=== PATIENT | female | born 1995 | race Caucasian/White ===

== ENCOUNTER 2016-09-07 02:33 | Emergency (ER) | payer BC, OTHER ==
[~2016-09-07] VITALS: Ht 165.1 cm; Wt 85.0 kg
[2016-09-07 02:46] VITALS: Ht 165.1 cm; Wt 85.0 kg
[2016-09-07] MEDS ORDERED: FAMOTIDINE 20 MG INJ IV STA (03:00)
[2016-09-07] MEDS ORDERED: ONDANSETRON 4 MG INJ IV STA (03:00)
[2016-09-07] MEDS ORDERED: SOD CHLORIDE 0.9% 1,000 ML IV STA ×2 (03:00→03:54)
[2016-09-07] MEDS ORDERED: morphine 2 MG INJ IV STA (03:00)
[2016-09-07 03:49] LABS: EOSINOPHILS % 0.2 % (0.0-7.0); HEMATOCRIT 36.9 % (37.0-47.0); HEMOGLOBIN 12.5 g/dl (12.0-16.0); LYMPHOCYTES # 1.4 10^3/ul (0.8-2.9); LYMPHOCYTES % 8.4 % (15.0-51.0); MEAN CORPUSCULAR HGB CONC 33.9 g/dl (32.0-37.0); MEAN CORPUSCULAR VOLUME 79.8 fl (82.0-101.0); MEAN PLATELET VOLUME 9.6 fl (7.4-10.4); MONOCYTE # 0.6 10^3/ul (0.3-0.9); MONOCYTES % 3.7 % (0.0-11.0); NEUTROPHIL # 14.5 10^3/ul (1.6-7.5); NEUTROPHILS % 87.7 % (39.0-77.0); PLATELET COUNT 272 10^3/UL (140-440); RED BLOOD COUNT 4.63 10^6/ul (4.20-5.40); RED CELL DISTRIBUTION WIDTH 14.4 % (11.5-14.5); UNCORRECTED WBC 16.5 10^3/ul (4.8-10.8); URINE BILIRUBIN (Dip) NEGATIVE (NEGATIVE); URINE BLOOD (Dip) NEGATIVE (NEGATIVE); URINE COLOR LT. YELLOW (YELLOW); URINE GLUCOSE (Dip) NEGATIVE (NEGATIVE); URINE KETONES (Dip) 15 (NEGATIVE); URINE LEUKOCYTE ESTERASE (Dip) NEGATIVE (NEGATIVE); URINE NITRITE (Dip) NEGATIVE (NEGATIVE); URINE UROBILINOGEN (Dip) 0.2 E.U./dL (0.1-1.0); WHITE BLOOD COUNT 16.5 10^3/ul (4.8-10.8)
[2016-09-07 03:50] LABS: ADD UMIC NO; URINE TOTAL PROTEIN (Dip) NEGATIVE (NEGATIVE)
[2016-09-07 03:51] LABS: CONDITION 1; LH ANALYZER COMMENTS 1
--- NOTE | 2016-09-07 04:04 | RADRPT ---
PROCEDURE: ULTRASOUND LIMITED ABDOMEN CLINICAL INDICATION: 21-year-old female with abdominal pain. TECHNIQUE: Multiple sonographic of the right upper quadrant of the abdomen were obtained. The imag es were reviewed on a PACS workstation. COMPARISON: None. FINDINGS: The pancreas is not well visualized secondary to overlying bowel gas. The liver displays normal echogenicity. The liver measures 15.2 cm in length. No evidence of intrah epatic biliary ductal dilatation is seen. The portal and hepatic veins are unremarkable. The gallbladder contains multiple shadowing stones with the largest measuring 2.3 cm and extending i nto the neck region. The gallbladder wall thickness is within normal limits measuring 1.5 mm. No p ericholecystic fluid is seen. The common bile duct measures 6.4 mm and is dilated. The right kidney displays normal echogenicity. The right kidney measures 9.2 cm in maximal length. N o caliectasis or hydronephrosis is seen. No free fluid is seen. IMPRESSION: Cholelithiasis with dilated common bile duct. .Guanakito Camp MD, Date Time Electronically viewed and signed by .Guanakito Camp MD, on 09/07/2016 04:04 .M/
[2016-09-07 04:10] LABS: ALBUMIN 4.5 g/dl (3.3-4.9)
[2016-09-07 04:11] LABS: POTASSIUM 3.6 mmol/L (3.5-5.1)
[2016-09-07 04:13] LABS: ALBUMIN/GLOBULIN RATIO 1.09; BILIRUBIN,INDIRECT 0.2 mg/dl (0-1.1); BILIRUBIN,TOTAL 0.2 mg/dl (0.2-1.3); CREATININE 0.73 mg/dl (0.44-1.00); TOTAL PROTEIN 8.6 g/dl (6.1-8.1)
[2016-09-07 04:14] LABS: CALCIUM 9.8 mg/dl (8.4-10.2)
--- NOTE | 2016-09-07 04:19 | ERD ---
ER Documentation Chief Complaint Date/Time DATE: 09/07/16 TIME: 04:16 Chief Complaint epigastric burning pain HPI This is a 21-year-old female presents to the emergency room for evaluation of abdominal pain. The patient states she has had abdominal pain for approximately 4 hours and localizes it to the midportion of her abdomen. She does state that started after she ate spicy food. She denies any radiation of the pain. She does say she is nausea and has vomited once. The patient does state she also has a history of gallstones and came to the ER today for evaluation. She denies any relieving factors for her pain ROS All systems reviewed and are negative except as per history of present illness. Allergies Allergies: Coded Allergies: No Known Allergy (Unverified , 09/07/16) PMhx/Soc History of Surgery: Yes (eye surgery) Anesthesia Reaction: No Hx Neurological Disorder: No Hx Respiratory Disorders: No Hx Cardiac Disorders: No Hx Psychiatric Problems: No Hx Miscellaneous Medical Probl: Yes (gallstones) Hx Alcohol Use: Yes (rarely) Hx Substance Use: No Hx Tobacco Use: No Smoking Status: Never smoker Physical Exam Vitals Vital Signs Date Time Temp Pulse Resp B/P Pulse Ox O2 Delivery O2 Flow Rate FiO2 09/07/16 02:46 98.0 79 18 128/82 100 Physical Exam INITIAL VITAL SIGNS: Reviewed by me GENERAL: The patient is well developed and appropriate for usual state of health in no apparent distress HEENT: Pupils equal, round, and reactive to light. EOMI. There is no scleral icterus. NECK: C-spine is soft and supple, there is no meningismus. There is no cervical lymphadenopathy. LUNGS: Clear to auscultation bilaterally. There are no rales, wheezes or rhonchi. HEART: Regular rate and rhythm, no murmurs, clicks, rubs or gallops. ABDOMEN: Epigastric tenderness to palpation, negative Fang sign, soft, non- tender, non-distended. There are bowel sounds in all four quadrants. No rebound or guarding. EXTREMITIES: There is no peripheral cyanosis or edema. No focal swelling or erythema. NEUROLOGICAL: The patient moves all four extremities with 5/5 strength. Cranial nerves II - XII are intact. Normal gait. Alert and oriented SKIN: There is no apparent rash or petechiae. HEME/LYMPHATIC: There is no evidence of excessive bruising or lymphedema. PSYCHIATRIC: The patient does not appear anxious or depressed. Result Diagram: 09/07/1631109/07/16311 Results 24 hrs Laboratory Tests Test 09/07/16 03:12 Alanine Aminotransferase (ALT/SGPT) 35IU/L Albumin 4.5g/dl Albumin/Globulin Ratio 1.09 Alkaline Phosphatase 113IU/L Anion Gap 21 Aspartate Amino Transf (AST/SGOT) 24IU/L Basophils # 0.010^3/ul Basophils % 0.0% Blood Morphology Comment Blood Urea Nitrogen 13mg/dl Calcium Level 9.8mg/dl Carbon Dioxide Level 25mmol/L Chloride Level 102mmol/L Creatinine 0.73mg/dl Direct Bilirubin 0.00mg/dl Eosinophils # 0.010^3/ul Eosinophils % 0.2% Globulin 4.10g/dl Glucose Level 105mg/dl Hematocrit 36.9% Hemoglobin 12.5g/dl Indirect Bilirubin 0.2mg/dl Lipase 161U/L Lymphocytes # 1.410^3/ul Lymphocytes % 8.4% Mean Corpuscular Hemoglobin 27.0pg Mean Corpuscular Hemoglobin Concent 33.9g/dl Mean Corpuscular Volume 79.8fl Mean Platelet Volume 9.6fl Monocytes # 0.610^3/ul Monocytes % 3.7% Neutrophils # 14.510^3/ul Neutrophils % 87.7% Nucleated Red Blood Cells # 0.010^3/ul Nucleated Red Blood Cells % 0.0/100WBC Platelet Count 20021^3/UL Potassium Level 3.6mmol/L Red Blood Count 4.6310^6/ul Red Cell Distribution Width 14.4% Sodium Level 144mmol/L Total Bilirubin 0.2mg/dl Total Protein 8.6g/dl Urine Bilirubin NEGATIVE Urine Clarity CLEAR Urine Color LT. YELLOW Urine Glucose NEGATIVE% Urine Hemoglobin NEGATIVE Urine Ketones 15 Urine Leukocyte Esterase NEGATIVE Urine Nitrite NEGATIVE Urine Test NEGATIVE Urine Specific Waves >=1.030 Urine Total Protein NEGATIVE Urine Urobilinogen 0.2 E.U./dL Urine pH 6.0 White Blood Count 16.510^3/ul Current Medications Medications (Trade) Dose Ordered Sig/Christiano Route PRN Reason Start Time Stop Time Status Last Admin Dose Admin Sodium Chloride (NS) 1,000 ml @ 1,000 mls/hr Q1H STAT IV 09/07/16 03:00 09/07/16 03:59 DC 09/07/16 03:29 Morphine Sulfate (morphine) 2 mg ONCE STAT IV 09/07/16 03:00 09/07/16 03:02 DC 09/07/16 03:26 Ondansetron HCl (Zofran Inj) 4 mg ONCE STAT IV 09/07/16 03:00 09/07/16 03:02 DC 09/07/16 03:25 Famotidine 20 mg 20 mg ONCE STAT IV 09/07/16 03:00 09/07/16 03:02 DC 09/07/16 03:25 Sodium Chloride (NS) 1,000 ml @ 1,000 mls/hr Q1H STAT IV 09/07/16 03:54 09/07/16 04:53 09/07/16 04:05 Procedures/MDM Ultrasound gallbladder: Cholelithiasis with dilated common bile duct. This 21-year-old female presents to the ER for evaluation of abdominal pain. This patient was found to have epigastric tenderness on my examination. Lab work was obtained including an ultrasound. Ultrasound does show gallstones with common bile duct dilation however common bile duct is a 6.4 mm. This patient has no elevations in her bilirubin or transaminases. The patient's pain is controlled with morphine and Zofran. This patient will need an elective cholecystectomy however feel that there is no need for an emergent cholecystectomy at this time. This patient will be discharged home with a prescription for Zofran, Zantac, Rex for breakthrough pain and referral for outpatient general surgery for elective cholecystectomy. I do feel her leukocytosis is reactive to her vomiting. Pulmonary evaluation she is sitting in bed comfortably in no acute distress. She did receive 2 L of IV fluids as well Departure Diagnosis: Primary Impression: Biliary colic Additional Impressions: Epigastric pain Cholelithiasis Condition: Stable BRENDAABDIAMARILIS MCKINNON Sep 07, 2016 04:19
[2016-09-07] MEDS ORDERED: ONDA4TAB8 PO (04:21)
[2016-09-07] MEDS ORDERED: RANI150T9 PO (04:21)
[2016-09-07] MEDS ORDERED: HYDR-906 PO (04:21)
[2016-09-07 04:27] VITALS: BP 117/65; PULSE 81; RESP 19
== END 2016-09-07 04:49 | disposition home or self-care (01) ==
LOC: E/R 02:33
DX: K80.70 Calculus of gallbladder and bile duct without cholecystitis without obstruction (principal); R11.2 Nausea with vomiting, unspecified
CPT/HCPCS: 36415; 76705; 80053; 81003; 83690; 84703; 85025; 96374; 96375; J2270; J2405; J7030; Z7502; Z7610

== ENCOUNTER 2017-02-12 04:33 | Emergency (ER) | payer OTHER ==
[~2017-02-12] VITALS: Ht 167.6 cm; Wt 80.5 kg
[~2017-02-12 04:33] MED LIST: HYDR-906 PO; ONDA4TAB8 PO; RANI150T9 PO
[2017-02-12 04:48] VITALS: Ht 167.6 cm; Wt 80.5 kg
[2017-02-12] MEDS ORDERED: morphine 4 MG/ML VIAL IV STA ×2 (05:05→05:59)
[2017-02-12] MEDS ORDERED: ONDANSETRON 4 MG INJ IV STA (05:05)
[2017-02-12] MEDS ORDERED: SOD CHLORIDE 0.9% 1,000 ML IV STA (05:05)
[2017-02-12 05:36] LABS: ADD SCAN DIFF NO
[2017-02-12 05:42] LABS: BASOPHILS % 0.2 % (0.0-2.0); EOSINOPHILS # 0.1 10^3/ul (0.0-0.5); EOSINOPHILS % 1.1 % (0.0-7.0); LYMPHOCYTES # 2.1 10^3/ul (0.8-2.9); LYMPHOCYTES % 19.9 % (15.0-51.0); MEAN CORPUSCULAR HEMOGLOBIN 24.2 pg (29.0-33.0); MEAN CORPUSCULAR HGB CONC 30.8 g/dl (32.0-37.0); MEAN CORPUSCULAR VOLUME 78.8 fl (82.0-101.0); MEAN PLATELET VOLUME 11.6 fl (7.4-10.4); MONOCYTE # 0.6 10^3/ul (0.3-0.9); MONOCYTES % 6.1 % (0.0-11.0); NEUTROPHIL # 7.6 10^3/ul (1.6-7.5); NEUTROPHILS % 72.4 % (39.0-77.0); PLATELET COUNT 276 10^3/UL (140-415); RED BLOOD COUNT 4.95 10^6/ul (4.20-5.40); RED CELL DISTRIBUTION WIDTH 14.4 % (11.5-14.5); WHITE BLOOD COUNT 10.5 10^3/ul (4.8-10.8)
[2017-02-12 05:52] LABS: ADD UMIC NO; UR ASCORBIC ACID NEGATIVE (NEGATIVE); UR BILIRUBIN (Dip) NEGATIVE (NEGATIVE); UR BLOOD (Dip) NEGATIVE (NEGATIVE); UR CLARITY SLIGHTLY CLOUDY (CLEAR); UR COLOR YELLOW (YELLOW); UR GLUCOSE (Dip) NEGATIVE (NEGATIVE); UR KETONES (Dip) NEGATIVE (NEGATIVE); UR LEUKOCYTE ESTERASE (Dip) NEGATIVE Leu/ul (NEGATIVE); UR NITRITE (Dip) NEGATIVE (NEGATIVE); UR RBC 1 /HPF (0-5); UR SPECIFIC GRAVITY (Dip) 1.012 (1.003-1.030); UR SQUAMOUS EPITHELIAL CELL FEW /HPF (FEW); UR TOTAL PROTEIN (Dip) NEGATIVE (NEGATIVE); UR UROBILINOGEN (Dip) NEGATIVE (NEGATIVE)
[2017-02-12 06:00] LABS: ALBUMIN 5.1 g/dl (3.3-4.9); ALBUMIN/GLOBULIN RATIO 1.45; BILIRUBIN,INDIRECT 0.2 mg/dl (0-1.1); BILIRUBIN,TOTAL 0.2 mg/dl (0.2-1.3); CALCIUM 9.9 mg/dl (8.4-10.2); CREATININE 0.74 mg/dl (0.44-1.00); POTASSIUM 3.8 mmol/L (3.5-5.1); TOTAL PROTEIN 8.6 g/dl (6.1-8.1)
--- NOTE | 2017-02-12 06:02 | RADRPT ---
PROCEDURE: Abdominal ultrasound, limited. CLINICAL INDICATION: Abdominal pain. TECHNIQUE: Multiple real-time images were acquired of the patient's right upper abdomen utilizing a high resolution transducer. COMPARISON: 09/07/2016. FINDINGS: The liver demonstrates normal echogenicity and size measuring 16.4 cm. There is no focal mass or in trahepatic biliary ductal dilatation. The portal vein is patent. The gallbladder is not distended. Multiple echogenic gallstones are identified. There is no pericholecystic fluid or gallbladder wa ll thickening. The common bile duct measures 6.5 mm in maximal dimension. The visualized portions of the pancreas are unremarkable. No free fluid is identified. The right kidney is normal size and echogenicity measuring 10.8 cm. There is no focal renal mass or echogenic calculus identified. There is no obstructive uropathy. IMPRESSION: Cholelithiasis without ultrasound evidence of cholecystitis. Mildly dilated common bile duct measuring 6.5 mm. .Michael Coyne MD, Date Time Electronically viewed and signed by .Michael Coyne MD, MD on 02/12/2017 06:02 .T/
[2017-02-12 06:33] VITALS: BP 122/85; PULSE 76; RESP 20; TEMP 98.3
[2017-02-12] MEDS ORDERED: ONDA4TAB14 PO (06:57)
[2017-02-12] MEDS ORDERED: HYDR-902 PO (06:57)
--- NOTE | 2017-02-12 07:26 | ERD ---
ER Documentation Chief Complaint Date/Time DATE: 02/12/17 TIME: 07:24 Chief Complaint gallstone attack x 3 in last 24 hoursa HPI Patient is a 22-year-old female with no medical problems who presents with abdominal pain. The patient says the pain started on Friday. She has midepigastric pain which radiates to her back. The pain is constant and lasts for hours at a time. She has no fevers. She tried Tylenol for her pain. Upon review of old medical records the patient had one previous visit to the ER in August 2016 for the same type of pain. She does not currently have a primary doctor. ROS All systems reviewed and are negative except as per history of present illness. Medications Home Meds Active Scripts Ondansetron (Ondansetron Odt) 4 Mg Tab.rapdis, 4 MG PO Q6H Y for NAUSEA AND/OR VOMITING, #30 TAB Prov:TUAN BENTON MD 02/12/17 Hydrocodone/Acetaminophen ([place] 10-325 Tablet) 1 Each Tablet, 1 TAB PO Q6H Y for PAIN, #12 TAB Prov:TUAN BENTON MD 02/12/17 Hydrocodone/Acetaminophen ([place] 5-325 Tablet) 1 Each Tablet, 1 EACH PO Q8 for 5 Days, #15 TAB Prov:AMARILIS ARMSTRONG DO 09/07/16 Ranitidine Hcl* (Zantac*) 150 Mg Tablet, 150 MG PO HS, #30 TAB Prov:AMARILIS ARMSTRONG DO 09/07/16 Ondansetron Hcl* (Zofran*) 4 Mg Tablet, 4 MG PO Q8H Y for NAUSEA AND/OR VOMITING , #15 TAB Prov:AMARILIS ARMSTRONG DO 09/07/16 Allergies Allergies: Coded Allergies: No Known Allergy (Unverified , 09/07/16) PMhx/Soc History of Surgery: Yes (NASAL surgery) Anesthesia Reaction: No Hx Neurological Disorder: No Hx Respiratory Disorders: No Hx Cardiac Disorders: No Hx Psychiatric Problems: No Hx Miscellaneous Medical Probl: Yes (gallstones) Hx Alcohol Use: Yes Hx Substance Use: No Hx Tobacco Use: No Smoking Status: Never smoker FmHx Family History: diabetes Physical Exam Vitals Vital Signs Date Time Temp Pulse Resp B/P Pulse Ox O2 Delivery O2 Flow Rate FiO2 02/12/17 06:33 98.3 76 20 122/85 100 Room Air 02/12/17 04:48 98.3 96 20 134/82 98 Physical Exam Const: Moderate distress secondary to pain Head: Atraumatic Eyes: Normal Conjunctiva ENT: Normal External Ears, Nose and Mouth. Neck: Full range of motion..~ No meningismus. Resp: Clear to auscultation bilaterally Cardio: Regular rate and rhythm, no murmurs Abd: Soft, right upper quadrant tenderness to palpation without rebound or guarding Skin: No petechiae or rashes Back: No midline or flank tenderness Ext: No cyanosis, or edema Neur: Awake and alert Psych: Normal Mood and Affect Result Diagram: 02/12/1752102/12/17521 Results 24 hrs Laboratory Tests Test 02/12/17 05:22 White Blood Count 10.510^3/ul Red Blood Count 4.9510^6/ul Hemoglobin 12.0g/dl Hematocrit 39.0% Mean Corpuscular Volume 78.8fl Mean Corpuscular Hemoglobin 24.2pg Mean Corpuscular Hemoglobin Concent 30.8g/dl Red Cell Distribution Width 14.4% Platelet Count 00047^3/UL Mean Platelet Volume 11.6fl Neutrophils % 72.4% Lymphocytes % 19.9% Monocytes % 6.1% Eosinophils % 1.1% Basophils % 0.2% Nucleated Red Blood Cells % 0.0/100WBC Neutrophils # 7.610^3/ul Lymphocytes # 2.110^3/ul Monocytes # 0.610^3/ul Eosinophils # 0.110^3/ul Basophils # 0.010^3/ul Nucleated Red Blood Cells # 0.010^3/ul Urine Color YELLOW Urine Clarity SLIGHTLY CLOUDY Urine pH 9.0 Urine Specific [place] 1.012 Urine Ketones NEGATIVEmg/dL Urine Nitrite NEGATIVEmg/dL Urine Bilirubin NEGATIVEmg/dL Urine Urobilinogen NEGATIVEmg/dL Urine Leukocyte Esterase NEGATIVELeu/ul Urine Microscopic RBC 1/HPF Urine Microscopic WBC 2/HPF Urine Squamous Epithelial Cells FEW/HPF Urine Hemoglobin NEGATIVEmg/dL Urine Glucose NEGATIVEmg/dL Urine Total Protein NEGATIVEmg/dl Sodium Level 143mmol/L Potassium Level 3.8mmol/L Chloride Level 97mmol/L Carbon Dioxide Level 26mmol/L Anion Gap 24 Blood Urea Nitrogen 10mg/dl Creatinine 0.74mg/dl Glucose Level 101mg/dl Calcium Level 9.9mg/dl Total Bilirubin 0.2mg/dl Direct Bilirubin 0.00mg/dl Indirect Bilirubin 0.2mg/dl Aspartate Amino Transf (AST/SGOT) 27IU/L Alanine Aminotransferase (ALT/SGPT) 35IU/L Alkaline Phosphatase 113IU/L Total Protein 8.6g/dl Albumin 5.1g/dl Globulin 3.50g/dl Albumin/Globulin Ratio 1.45 Lipase 170U/L Current Medications Medications (Trade) Dose Ordered Sig/Christiano Route PRN Reason Start Time Stop Time Status Last Admin Dose Admin Sodium Chloride (NS) 1,000 ml @ 1,000 mls/hr Q1H STAT IV 02/12/17 05:05 02/12/17 06:04 DC 02/12/17 05:18 Morphine Sulfate (morphine) 4 mg ONCE STAT IV 02/12/17 05:05 02/12/17 05:06 DC 02/12/17 05:18 Ondansetron HCl (Zofran Inj) 4 mg ONCE STAT IV 02/12/17 05:05 02/12/17 05:06 DC 02/12/17 05:17 Morphine Sulfate (morphine) 4 mg ONCE STAT IV 02/12/17 05:59 02/12/17 06:00 DC 02/12/17 06:05 Procedures/MDM Ultrasound showed gallstones but no cholecystitis per radiology. Patient is a 22-year-old female with no medical problems who presents with what appears to be acute biliary colic. Her ultrasound shows gallstones but there is no cholecystitis. White blood cell count, LFTs, and lipase are normal. The patient will be discharged home and can follow-up with Dr. Delaney from surgery for elective cholecystectomy. I did speak to Dr. Delaney prior to discharge and he said that elective cholecystectomy would probably be the best course of action. I doubt pancreatitis, appendicitis, or bowel obstruction. Departure Diagnosis: Primary Impression: Biliary colic Additional Impression: Abdominal pain Abdominal location: epigastric Qualified Code: R10.13 - Epigastric pain Condition: Stable Patient Instructions: Abdominal Pain Referrals: AUDREY DELANEY M.D. Additional Instructions: SPECIALIST: YOU HAVE A MEDICAL CONDITION WHICH REQUIRES YOU TO SEE A SPECIALIST WITHIN THE NEXT 1-2 DAYS. PLEASE FOLLOW UP WITH YOUR PRIMARY PHYSICIAN FOR REFFERAL.IF YOU DO NOT HAVE A PRIMARY CARE PHYSICIAN AND/OR YOU CAN NOT AFFORD TO SEE A PHYSICIAN THE FOLLOWING RESOURCES HAVE BEEN SUPPLIED TO YOU. IT IS YOUR RESPONSIBILITY TO BE SEEN BY THE SPECIALIST TUAN BENTON MD Feb 12, 2017 07:26
== END 2017-02-12 07:19 | disposition home or self-care (01) ==
LOC: E/R 04:33
DX: K80.50 Calculus of bile duct without cholangitis or cholecystitis without obstruction (principal)
CPT/HCPCS: 36415; 76705; 80053; 81001; 83690; 85025; 96361; 96374; 96375; 96376; J2270; J2405; J7030; Z7502; Z7610; 81003

== ENCOUNTER 2017-12-07 01:52 | Emergency (ER) | END 2017-12-07 05:56 | disposition home or self-care (01) ==

== ENCOUNTER 2018-04-02 04:42 | Emergency (ER) | END 2018-04-02 04:46 | disposition left against medical advice (07) ==

== ENCOUNTER 2018-04-02 13:30 | Inpatient (IN) | END 2018-04-02 19:40 | disposition home or self-care (01) | DRG 781 ==